=== PATIENT | female | born 1970 | race Caucasian/White ===

== ENCOUNTER 2017-07-10 12:45 | Emergency (ER) | payer OTHER ==
[2017-07-10 12:46] VITALS: BMI 30.2
[2017-07-10] MEDS ORDERED: Albuterol 0.083% Inhal Sol (2.5 mg/3 mL) UD IH STA (16:31)
--- NOTE | 2017-07-10 16:31 | RAD ---
HISTORY: COMPARISON: 05/18/2016. TECHNIQUE: Chest PA and lateral FINDINGS: LINES AND TUBES: None. LUNG AND PLEURA: The lungs are well inflated and clear. HEART AND MEDIASTINUM: The heart is not enlarged. The hilar and mediastinal contours are within normal limits. SKELETAL STRUCTURES: The bony structures are within normal limits for the patient's age. VISUALIZED UPPER ABDOMEN: Normal. OTHER FINDINGS: None. IMPRESSION: No active pulmonary disease.
[2017-07-10] MEDS ORDERED: Albuterol 0.083% Inhal Sol (2.5 mg/3 mL) UD ONE (16:37)
[2017-07-10 18:00] VITALS: BP 125/81; PULSE 83; RESP 16; TEMP 98.2; O2SAT 99
--- NOTE | 2017-07-10 18:01 | C.PDOC ---
History Of Present Illness Patient presente to ED c/o nonproductive persistent cough since Jul 05. Patient is S/P PO antibiotics and states symptoms have not improved. She has PMHx of asthma. Patient denies fever, chest pain, sore throat, ear pain. She admits to runny nose. She was seen in medical clinic today and instructed to have outpatient CXR and return for follow up tomorrow - however she came to ER instead. Time Seen by Provider: 07/10/17 13:31 Chief Complaint (Nursing): Cough, Cold, Congestion History Per: Patient History/Exam Limitations: no limitations Onset/Duration Of Symptoms: Days Current Symptoms Are (Timing): Still Present Associated Symptoms: Cough, Nasal Congestion Ear Symptoms: Bilateral: None Severity: Mild Past Medical History Reviewed: Historical Data, Nursing Documentation, Vital Signs Vital Signs: Last Vital Signs Temp 98.2 F 07/10/17 18:00 Pulse 83 07/10/17 18:00 Resp 16 07/10/17 18:00 BP 125/81 07/10/17 18:00 Pulse Ox 99 07/10/17 18:00 - Medical History PMH: Asthma, Diabetes Family History: States: No Known Family Hx - Social History Hx Alcohol Use: No Hx Substance Use: No - Immunization History Hx Tetanus Toxoid Vaccination: No Hx Influenza Vaccination: No Review Of Systems Except As Marked, All Systems Reviewed And Found Negative. Constitutional: Negative for: Fever, Chills ENT: Positive for: Nose Congestion. Negative for: Ear Pain, Throat Pain Cardiovascular: Negative for: Chest Pain, Palpitations Respiratory: Positive for: Cough, Wheezing. Negative for: Shortness of Breath Skin: Negative for: Rash Physical Exam - Physical Exam Appears: Well, Non-toxic, No Acute Distress, Other (speaking in full sentences ) Skin: Normal Color, Warm, Dry, No Rash Nose: Normal Oral Mucosa: Moist Chest: Symmetrical Cardiovascular: Rhythm Regular Respiratory: No Accessory Muscle Use, No Rales, No Rhonchi, Wheezing (mild expiratory wheezing B/L ) Neurological/Psych: Oriented x3 ED Course And Treatment O2 Sat by Pulse Oximetry: 99 (RA) Pulse Ox Interpretation: Normal - Radiology CXR: Interpreted by Me, Viewed By Me CXR Interpretation: Yes: No Acute Disease. No: Infiltrates Progress Note: Patient given Prednisone PO and albuterol neb treatment. CXR ordered and reviewed - negative for infiltrates/effusions. Reevaluation Time: 18:00 Reassessment Condition: Improved (Patient reassessed, states she feels better. On exam, she has good air entry B/L without wheezing or accessory muscle use. POx is 99% oN RA. Patient given Rxs for albuterol inhaler and nebs, prednisone and tessalon. She was instructed to follow up in medical clinic in 1-2 days, and understands she should return to ED if symptoms worsen.) Disposition Counseled Patient/Family Regarding: Studies Performed, Diagnosis, Need For Followup, Rx Given - Disposition Referrals: [facility] [Outside] Disposition: HOME/ ROUTINE Disposition Time: 18:00 Condition: GOOD Additional Instructions: FOLLOW UP WITH YOUR DOCTOR/CLINIC IN 1-2 DAYS USE MEDICATIONS DIRECTED RETURN TO ER IF SYMPTOMS WORSEN Prescriptions: Albuterol 0.5% [Albuterol 0.5% Inhal Tamie (2.5 mg/0.5 ml) UD] 2.5 mg IH Q6 PRN # 1 bottle PRN Reason: Wheezing Albuterol HFA [Ventolin HFA 90 mcg/actuation (8 g)] 0.09 mg IH Q4 PRN #1 puff PRN Reason: Wheezing Benzonatate [Tessalon Perles] 100 mg PO BID PRN #15 sgl PRN Reason: Cough predniSONE [predniSONE Tab] 40 mg PO DAILY #6 tab Instructions: Acute Bronchitis Forms: [employer] [facility] (Slovenian) Print Language: CYMRAES - POA Present On Arrival: None - Clinical Impression Clinical Impression: Bronchitis, Bronchospasm
== END 2017-07-10 18:08 | disposition home or self-care (01) ==
LOC: C.ER 12:45
DX: J40 Bronchitis, not specified as acute or chronic (principal)

== ENCOUNTER 2017-07-20 09:26 | Emergency (ER) | payer OTHER ==
[2017-07-20 09:33] VITALS: BMI 31.8
[2017-07-20] MEDS ORDERED: Albuterol-Ipratrop 3 mg / 0.5 (3 ml) UD IH STA (10:44)
[2017-07-20] MEDS ORDERED: Albuterol-Ipratrop 3 mg / 0.5 (3 ml) UD ONE (10:59)
[2017-07-20 11:08] LABS: HCG,QUALITATIVE URINE NEGATIVE (NEGATIVE)
[2017-07-20 11:10] LABS: SQUAMOUS EPITHIAL 2 /hpf (0-5); URINE BILIRUBIN NEGATIVE (NEGATIVE); URINE BLOOD NEGATIVE (NEGATIVE); URINE CLARITY Hazy (Clear); URINE COLOR Yellow (YELLOW); URINE GLUCOSE (UA) 3+ mg/dL (Normal); URINE LEUKOCYTE ESTERASE NEG Leu/uL (Negative); URINE NITRATE NEGATIVE (NEGATIVE); URINE PROTEIN NEGATIVE (NEGATIVE); URINE UROBILINOGEN NORMAL mg/dL (0.2-1.0)
[2017-07-20 11:17] LABS: BASO % 0.3 % (0.0-2.0); EOS % 0.5 % (0.0-4.0); HEMOGLOBIN 11.9 g/dL (11.0-16.0); LYMPH # 2.3 K/uL (1.0-4.3); LYMPH % 25.2 % (20.0-40.0); MEAN CELL VOLUME 75.8 fL (81.0-99.0); MEAN CORPUSCULAR HEMOGLOBIN 24.5 pg (27.0-31.0); MEAN CORPUSCULAR HGB CONC 32.4 g/dL (33.0-37.0); MEAN PLATELET VOLUME 8.4 fL (7.2-11.7); MONO # 0.6 K/uL (0.0-0.8); MONO % 6.6 % (0.0-10.0); NEUT # 6.1 K/uL (1.8-7.0); NEUT % 67.4 % (50.0-75.0); NRBC % 0.1 % (0.0-2.0); RBC 4.86 Mil/uL (3.80-5.20); RED CELL DISTRIBUTION WIDTH 15.3 % (11.5-14.5)
[2017-07-20 11:24] LABS: INR 0.9; PROTHROMBIN TIME 10.5 SECONDS (9.7-12.2)
[2017-07-20 11:26] LABS: ALB/GLOB RATIO 1.2 (1.0-2.1); ALBUMIN 4.2 g/dL (3.5-5.0); CALCIUM 9.1 mg/dl (8.6-10.4); GFR AFRICAN-AMERICAN > 60; GFR NON-AFRICAN AMERICAN > 60
[2017-07-20 11:27] LABS: ALT/SGPT 25 U/L (9-52); AST/SGOT 33 U/L (14-36); BLOOD UREA NITROGEN 7 mg/dL (7-17)
[2017-07-20 11:40] LABS: CK-MB < 0.22 ng/mL (0.0-3.38)
[2017-07-20 11:50] VITALS: RESP 16; TEMP 98; O2SAT 98
--- NOTE | 2017-07-20 12:51 | RAD ---
HISTORY: cough/chest pain COMPARISON: Chest x-ray performed 07/10/17 TECHNIQUE: Chest PA and lateral FINDINGS: LUNGS: Patchy opacity in the right middle lobe likely atelectasis, however developing infiltrate cannot be entirely excluded in the proper clinical setting. Please note that chest x-ray has limited sensitivity for the detection of pulmonary masses. PLEURA: No significant pleural effusion identified. No definite pneumothorax . CARDIOVASCULAR: Heart size appears within normal limits. OSSEOUS STRUCTURES: Mild degenerative changes. VISUALIZED UPPER ABDOMEN: Mild elevation of the right hemidiaphragm. OTHER FINDINGS: None. IMPRESSION: Patchy opacity in the right middle lobe likely atelectasis, however developing infiltrate cannot be entirely excluded in the proper clinical setting. Correlate clinically.
--- NOTE | 2017-07-20 13:46 | C.PDOC ---
History Of Present Illness 46 year old female presents to the ED for evaluation of left-sided chest pain and headache which began yesterday. Patient was seen in this ED around 10 days ago for upper respiratory symptoms. Patient states she was asymptomatic until yesterday. She denies fever, chills, vision change, dizziness, shortness of breath, nausea, vomiting, extremity numbness/weakness. Time Seen by Provider: 07/20/17 09:39 Chief Complaint (Nursing): Chest Pain History Per: Patient History/Exam Limitations: no limitations Onset/Duration Of Symptoms: Hrs Current Symptoms Are (Timing): Still Present Quality: Aching Associated Symptoms: denies: Nausea Additional History Per: Patient Past Medical History Reviewed: Historical Data, Nursing Documentation, Vital Signs Vital Signs: Last Vital Signs Temp 98 F 07/20/17 11:49 Pulse 86 07/20/17 11:49 Resp 16 07/20/17 11:49 BP 116/83 07/20/17 11:49 Pulse Ox 98 07/20/17 13:58 - Medical History PMH: Asthma, Diabetes, HTN, Hypercholesterolemia Surgical History: No Surg Hx Family History: States: Unknown Family Hx - Social History Hx Alcohol Use: No Hx Substance Use: No - Immunization History Hx Tetanus Toxoid Vaccination: No Hx Influenza Vaccination: Yes Hx Pneumococcal Vaccination: Yes Review Of Systems Constitutional: Negative for: Fever, Chills Eyes: Negative for: Vision Change Cardiovascular: Positive for: Chest Pain (left-sided ) Respiratory: Negative for: Shortness of Breath Gastrointestinal: Negative for: Nausea, Vomiting Neurological: Positive for: Headache. Negative for: Weakness, Numbness, Dizziness Physical Exam - Physical Exam Appears: Non-toxic, No Acute Distress Skin: Normal Color, Warm, Dry Head: Atraumatic, Normacephalic Eye(s): bilateral: Normal Inspection Oral Mucosa: Moist Neck: Supple Chest: Symmetrical, No Deformity, Tenderness (left chest wall ) Cardiovascular: Rhythm Regular, No Murmur Respiratory: No Rales, No Rhonchi, Wheezing (slight) Gastrointestinal/Abdominal: Soft, No Tenderness, No Guarding, No Rebound Extremity: Normal ROM, Capillary Refill (less than 2 seconds ) Neurological/Psych: Oriented x3, Normal Speech, Normal Cognition ED Course And Treatment - Laboratory Results Result Diagrams: 07/20/17 11:10 07/20/17 11:10 ECG: Interpreted By Me, Viewed By Me ECG Rhythm: Sinus Rhythm Interpretation Of ECG: Normal Sinus Rhythm at rate 88bpm. Rate From EC O2 Sat by Pulse Oximetry: 98 (on RA) Pulse Ox Interpretation: Normal - Other Rad CXR X-Ray: Interpreted by Me, Viewed By Me, Read By Radiologist Interpretation: HISTORY: cough/chest pain. COMPARISON: Chest x-ray performed 07/10/17. TECHNIQUE: Chest PA and lateral. FINDINGS: LUNGS: Patchy opacity in the right middle lobe likely atelectasis, however developing infiltrate cannot be entirely excluded in the proper clinical setting. Please note that chest x-ray has limited sensitivity for the detection of pulmonary masses. PLEURA: No significant pleural effusion identified. No definite pneumothorax . CARDIOVASCULAR: Heart size appears within normal limits. OSSEOUS STRUCTURES : Mild degenerative changes. VISUALIZED UPPER ABDOMEN: Mild elevation of the right hemidiaphragm. OTHER FINDINGS: None. IMPRESSION: Patchy opacity in the right middle lobe likely atelectasis, however developing infiltrate cannot be entirely excluded in the proper clinical setting. Correlate clinically. Progress Note: Labs, urinalysis, CXR, EKG ordered. Lab results are negative. D- dimer results are negative. Albuterol INH administered. Disposition - Disposition Disposition: HOME/ ROUTINE Disposition Time: 14:17 Condition: STABLE Additional Instructions: Follow up with PMD within 1-2 days. Return to ED if feel worse. Prescriptions: Fluticasone Propionate [Flovent Hfa] 2 puff IH BID #1 inh Benzonatate [Tessalon Perles] 2 tab PO TID #60 sgl Azithromycin [Zithromax] 250 mg PO DAILY #6 tab Instructions: Acute Bronchitis Forms: [employer] [facility] (Turkish) - Clinical Impression Clinical Impression: Bronchitis - PA / FOSTER PARENT / Resident Statement MD/DO has reviewed & agrees with the documentation as recorded. - Scribe Statement The provider has reviewed the documentation as recorded by the Scribe (Mariia Adan) All medical record entries made by the Scribe were at my direction and personally dictated by me. I have reviewed the chart and agree that the record accurately reflects my personal performance of the history, physical exam, medical decision making, and the department course for this patient. I have also personally directed, reviewed, and agree with the discharge instructions and disposition.
[2017-07-20 14:28] VITALS: BP 126/86; PULSE 78
--- NOTE | 2017-07-23 09:38 | CARD ---
APPROVED REPORT EKG Measurement Heart [id number] <Conclusion> Normal sinus rhythm Normal ECG
== END 2017-07-20 14:28 | disposition home or self-care (01) ==
LOC: C.ER 09:26
DX: J40 Bronchitis, not specified as acute or chronic (principal); I10 Essential (primary) hypertension; E11.9 Type 2 diabetes mellitus without complications; E78.00 Pure hypercholesterolemia, unspecified

== ENCOUNTER 2018-04-29 09:08 | Emergency (ER) | payer SELFPAY ==
[2018-04-29 09:08] VITALS: BMI 30.7
[2018-04-29 09:19] VITALS: BP 123/93; PULSE 81; RESP 18; TEMP 97.9; O2SAT 100
--- NOTE | 2018-04-29 09:33 | C.PDOC ---
History Of Present Illness 47 y/o female, w/PMhx of diabetes, presents to the ER for evaluation of elevated blood sugar levels which have been present for the past 3 days. Patient stated that her blood sugar levels have been over 350 at home. Patient reports that she is on a moderate diet. She notes that she has coffee and bread in the morning, [employer] sandwich in afternoon, and chicken/spinach and bread in the evening. She is compliant with her Lantus 60 units QHS and Metformin 875 mg TID. She is concerned that she may need to change her medications routine .Denies having polyuria and polydipsia. Time Seen by Provider: 04/29/18 09:21 Chief Complaint (Nursing): High Blood Sugar History Per: Patient History/Exam Limitations: no limitations Onset/Duration Of Symptoms: Days Current Symptoms Are (Timing): Still Present Severity: Moderate Past Medical History Reviewed: Historical Data, Nursing Documentation, Vital Signs Vital Signs: Last Vital Signs Temp 97.9 F 04/29/18 09:14 Pulse 81 04/29/18 09:14 Resp 18 04/29/18 09:14 BP 123/93 H 04/29/18 09:14 Pulse Ox 100 04/29/18 09:14 - Medical History PMH: Asthma, Diabetes, HTN, Hypercholesterolemia Other Surgeries: Hx of surgeries Family History: States: No Known Family Hx - Social History Hx Alcohol Use: No Hx Substance Use: No - Immunization History Hx Tetanus Toxoid Vaccination: No Hx Influenza Vaccination: Yes Hx Pneumococcal Vaccination: No Review Of Systems Except As Marked, All Systems Reviewed And Found Negative. Constitutional: Negative for: Fever, Chills Cardiovascular: Negative for: Chest Pain Respiratory: Negative for: Shortness of Breath Gastrointestinal: Negative for: Nausea, Vomiting Physical Exam - Physical Exam Appears: Non-toxic, No Acute Distress, Other (obese female) Skin: Normal Color, Warm, Dry Head: Atraumatic, Normacephalic Eye(s): bilateral: Normal Inspection Nose: Normal Oral Mucosa: Moist Neck: Supple Chest: Symmetrical Cardiovascular: Rhythm Regular Respiratory: Normal Breath Sounds, No Rales, No Rhonchi, No Wheezing Gastrointestinal/Abdominal: Normal Exam, Soft, No Tenderness, No Guarding, No Rebound Neurological/Psych: Oriented x3, Normal Speech ED Course And Treatment O2 Sat by Pulse Oximetry: 100 (RA) Pulse Ox Interpretation: Normal Medical Decision Making Medical Decision Making: glu @ home 350+ for past 3 days normal now no s/s normal exam maxed on Metformin 875 TID and Lantus 60 QHS consider changing to insulin if poorly controlled REferred to clinic for med adjustments and close f/u. Disposition Doctor Will See Patient In The: Office Counseled Patient/Family Regarding: Studies Performed, Diagnosis - Disposition Referrals: On License Of [facility] [Outside] [facility] [Outside] [facility] [Outside] Clarissa Gannon MD [Staff Provider] - Disposition: HOME/ ROUTINE Disposition Time: 09:33 Condition: GOOD Additional Instructions: Please present to the Family Practice Clinic for medication changes and close follow-up for your Diabetes Instructions: Hyperglycemia, Adult, Diabetes and Diet Forms: [employer] (Arabic) - Clinical Impression Clinical Impression: Hyperglycemia - Scribe Statement The provider has reviewed the documentation as recorded by the Scribe Linda Herrera Provider Attestation: All medical record entries made by the Scribe were at my direction and personally dictated by me. I have reviewed the chart and agree that the record accurately reflects my personal performance of the history, physical exam, me dical decision making, and the department course for this patient. I have also personally directed, reviewed, and agree with the discharge instructions and disposition.
== END 2018-04-29 09:50 | disposition home or self-care (01) ==
LOC: C.ER 09:08
DX: E11.65 Type 2 diabetes mellitus with hyperglycemia (principal); Z79.4 Long term (current) use of insulin

== ENCOUNTER 2018-07-05 08:23 | Outpatient (CLI) | payer OTHER | END 2018-07-05 08:24 | disposition home or self-care (01) | LOC: C.MAMMO 08:24 ==